=== PATIENT | male | born 1985 | race Caucasian/White ===

== ENCOUNTER 2020-08-29 14:35 | Inpatient (IN) ==
[2020-08-29] MEDS ORDERED: OLANZapine 10 MG VIAL IM ONE (16:19)
[2020-08-29] MEDS: *HR* LORazepam 2 MG/ML VIAL IM ONE (16:37)
[2020-08-29 17:13] LABS: Bilirubin,Urine Negative (Negative); Blood,Urine Negative (Negative); Clarity,Urine Turbid (Clear); Color,Urine Light-Yellow (Yellow); Glucose,Urine (UA) Normal (Normal); Ketones,Urine Negative (Negative); Leukocyte Esterase,Urine Trace (Negative); Mucus,Urine Many per lpf (None-Few); Nitrite,Urine Negative (Negative); Protein,Urine Trace mg/dL (Neg-Trace); Urobilinogen,Urine Normal (Normal); WBC,Urine 0-3 per hpf (0-3)
[2020-08-29 17:23] LABS: Amphetamine Screen,Urine Negative ng/mL (Cutoff=1000); Barbiturate Screen,Urine Negative ng/mL (Cutoff=200); Benzodiazepines Screen,Urine Negative ng/mL (Cutoff=200); Cannabinoid Screen,Urine Positive ng/mL (Cutoff = 50); Cocaine Screen,Urine Negative ng/mL (Cutoff= 300); Opiate Screen,Urine Negative ng/mL (Cutoff=300); Phencyclidine Screen,Urine Negative ng/mL (Cutoff=25)
[2020-08-29] MEDS ORDERED: *HR* LORazepam 1 MG TABLET PO PRN (21:56)
[2020-08-29] MEDS ORDERED: *HR* LORazepam 2 MG/ML VIAL IM PRN (21:56)
[2020-08-29] MEDS ORDERED: Acetaminophen 325 MG TABLET PO PRN (21:56)
[2020-08-29] MEDS ORDERED: Haloperidol Lactate 5 MG/ML VIAL IM PRN (21:56)
[2020-08-29] MEDS ORDERED: haloperidoL 5 MG TABLET PO PRN (21:56)
[2020-08-29] MEDS: hydrOXYzine pamoate 25 MG CAPSULE PO PRN (23:13)
[2020-08-29] MEDS: QUEtiapine Fumarate 25 MG TABLET PO PRN (23:13)
[2020-08-30] MEDS ORDERED: Mag Hydrox/Al Hydrox/Simeth 30 ML UDC PO PRN (11:32)
[2020-08-30] MEDS ORDERED: MOM Conc 10 ML UD.LIQ PO PRN (11:32)
[2020-08-30] MEDS: Nicotine 21 MG PATCH.TD24 TD SCH (12:39)
[2020-08-30] MEDS: FLUoxetine 20 MG CAPSULE PO SCH (15:39)
[2020-08-30] MEDS: hydrOXYzine pamoate 25 MG CAPSULE PO PRN ×2 (15:39→21:20)
[2020-08-30] MEDS: lamoTRIgine 25 MG TABLET PO SCH (15:40)
[2020-08-30] MEDS: lamoTRIgine 100 MG TABLET PO SCH (21:19)
[2020-08-30] MEDS: QUEtiapine Fumarate 25 MG TABLET PO PRN (21:20)
[2020-08-31] MEDS: Nicotine 21 MG PATCH.TD24 TD SCH (09:54)
[2020-08-31] MEDS: lamoTRIgine 25 MG TABLET PO SCH (09:55)
[2020-08-31] MEDS: FLUoxetine 20 MG CAPSULE PO SCH (09:55)
[2020-08-31] MEDS: *HR* LORazepam 2 MG/ML VIAL IM ONE (11:59)
[2020-08-31] MEDS: QUEtiapine Fumarate 25 MG TABLET PO PRN (21:29)
[2020-08-31] MEDS: lamoTRIgine 100 MG TABLET PO SCH (21:29)
[2020-09-01] MEDS: Nicotine 21 MG PATCH.TD24 TD SCH (12:39)
[2020-09-01] MEDS: FLUoxetine 20 MG CAPSULE PO SCH (12:40)
[2020-09-01] MEDS: lamoTRIgine 25 MG TABLET PO SCH (12:41)
[2020-09-01] MEDS: hydrOXYzine pamoate 25 MG CAPSULE PO PRN (13:00)
[2020-09-01] MEDS: lamoTRIgine 100 MG TABLET PO SCH ×2 (13:00→20:58)
[2020-09-01] MEDS: QUEtiapine Fumarate 25 MG TABLET PO SCH ×2 (14:38→20:58)
[2020-09-02] MEDS: FLUoxetine 20 MG CAPSULE PO SCH (09:01)
[2020-09-02] MEDS: QUEtiapine Fumarate 25 MG TABLET PO SCH (09:02)
[2020-09-02] MEDS: lamoTRIgine 100 MG TABLET PO SCH (09:02)
[2020-09-02] MEDS: Nicotine 21 MG PATCH.TD24 TD SCH (09:03)
[2020-09-02 09:45] VITALS: BP 137/83
== END 2020-09-02 11:50 | disposition home or self-care (01) | DRG 753 ==
LOC: EMEROOARM 14:35 → 1ANU 21:48
PROVIDERS: ADMIT Psychiatry & Neurology Psychiatry; ATTEND Psychiatry & Neurology Psychiatry